=== PATIENT | female | born 1970 | race Caucasian/White ===

== ENCOUNTER 2021-04-11 08:49 | Emergency (ER) | payer OTHER ==
[~2021-04-11] VITALS: Ht 157.5 cm; Wt 77.1 kg
--- NOTE | 2021-04-11 09:12 | NUR ---
novel swabbed at this time
[2021-04-11 09:13] VITALS: BP 140/79
--- NOTE | 2021-04-11 09:17 | NUR ---
50 y/o female, c/o cough, winter, cp, sob, congestion in ears and chest for 10 days. pt states she tested positive on 04/02/21. states everyone at home is sick with same symptoms. states winter pain is 5/10 at this time. pmh: pneumonia nka med: amoxicillin
[2021-04-11] MEDS ORDERED: ALBU0.0912 INH (11:07)
--- NOTE | 2021-04-11 11:19 | NUR ---
Patient discharged with v/s stable. Written and verbal after care instructions given and explained. Patient alert, oriented and verbalized understanding of instructions. Ambulatory with steady gait. All questions addressed prior to discharge. ID band removed. Patient advised to follow up with PMD. Rx of albuterol (sent) given. Patient educated on indication of medication including possible reaction and side effects. Opportunity to ask questions provided and answered.
[2021-04-11 11:20] VITALS: BP 140/79
== END 2021-04-11 11:19 | disposition home or self-care (01) ==
LOC: MED 08:49
DX: U07.1 COVID-19 (principal)
CPT/HCPCS: 71045; 99284; U0003